=== PATIENT | male | born 1955 | race African-American/Black ===

== ENCOUNTER 2018-05-13 09:25 | Inpatient (IN) | payer MEDICAID ==
[~2018-05-13] VITALS: Ht 170.2 cm; Wt 80.7 kg
[~2018-05-13 09:25] MED LIST: ALBU05 IH; BUDE6HFA IH; DILT90TA2 PO; FLOV44 INH; HY1 PO; HYDR25TA PO; LOSA50TA3 PO; NICO-682 TD
[2018-05-13] MEDS ORDERED: ALBUTEROL (0.083%) 2.5MG/3ML NEB HHN STA (09:50)
[2018-05-13] MEDS ORDERED: IPRATROPIUM BROMIDE (0.02%) 0.5MG/2.5ML NEB HHN STA (09:50)
[2018-05-13] MEDS ORDERED: AZITHROMYCIN 500 MG TABLET PO STA (09:50)
[2018-05-13] MEDS ORDERED: PREDNISONE 20MG TABLET PO STA (09:50)
[2018-05-13] MEDS ORDERED: METHYLPREDNISOLONE SOD SUCC 125 MG/2 ML VIAL IV ONE (10:00)
[2018-05-13 10:19] LABS: BASOPHILS % 0.9 % (0.0-2.0); EOSINOPHILS % 9.3 % (0.0-5.0); HEMATOCRIT. 42.5 % (42.0-52.0); HEMOGLOBIN. 13.8 g/dL (14.0-18.0); LYMPHOCYTES % 15.5 % (20.0-50.0); MEAN CORPUSCULAR HEMOGLOBIN 28.5 pg (28.0-32.0); MEAN CORPUSCULAR VOLUME 87.7 fL (80.0-94.0); MEAN PLATELET VOLUME 8.5 fl (7.4-10.4); MONOCYTES % 6.6 % (2.0-8.0); NEUTROPHILS % 67.7 % (40.0-76.0); PLATELET 262 x1000/uL (130-400); RED BLOOD CELL COUNT 4.85 mill/uL (4.7-6.1); RED CELL DISTRIBUTION WIDTH 15.3 % (11.6-14.6)
[2018-05-13] MEDS ORDERED: GUAIFENESIN-DM 200MG-20MG/10ML UDC PO PRN (13:15)
[2018-05-13] MEDS ORDERED: IPRATROPIUM/ALBUTEROL 0.5-3(2.5)MG/3ML NEB HHN PRN (13:15)
[2018-05-13] MEDS: AMLODIPINE 5MG TABLET PO SCH ×2 (14:31→20:54)
[2018-05-13 16:00] VITALS: BP 159/91
[2018-05-13 16:27] VITALS: BP 147/85
[2018-05-13] MEDS ORDERED: MONTELUKAST SODIUM 10MG TABLET PO SCH (17:00)
[2018-05-13 20:00] VITALS: BP 166/99
[2018-05-13] MEDS: ENOXAPARIN 30MG/0.3ML SYR SUBCUT SCH (20:53)
[2018-05-13] MEDS: METHYLPREDNISOLONE SOD SUCC 40 MG/ML VIAL IV SCH (20:53)
[2018-05-13] MEDS ORDERED: CLONIDINE 0.1MG TABLET PO PRN (21:00)
[2018-05-13 22:13] LABS: CLARITY URINE CLEAR (CLEAR); COLOR URINE YELLOW (YELLOW); KETONES URINE TRACE (NEGATIVE); LEUKOCYTE ESTERASE URINE NEGATIVE (NEGATIVE); NITRITE URINE NEGATIVE (NEGATIVE); OCCULT BLOOD URINE NEGATIVE (NEGATIVE); PROTEIN URINE 3+ (NEGATIVE); SPECIFIC GRAVITY URINE 1.021 (1.005-1.030); UROBILINOGEN URINE 0.2 E.U./dL (0.2-1.0)
[2018-05-13] MEDS: IPRATROPIUM/ALBUTEROL 0.5-3(2.5)MG/3ML NEB HHN SCH (22:13)
[2018-05-13] MEDS: THEOPHYLLINE ANHYDROUS 80 MG/15 ML 120ML PO SCH (22:31)
[2018-05-13 22:44] LABS: *AMPHETAMINES SCREEN URINE NEGATIVE (NEGATIVE); *BENZODIAZEPINES SCREEN URINE NEGATIVE (NEGATIVE); *COCAINE SCREEN URINE PRESUMTIVE POSITIVE (NEGATIVE); METHADONE URINE SCREEN NEGATIVE (NEGATIVE); OPIATES URINE SCREEN NEGATIVE (NEGATIVE)
[2018-05-13 22:45] LABS: *BARBITURATES SCREEN URINE NEGATIVE (NEGATIVE); CANNABINOID URINE SCREEN NEGATIVE (NEGATIVE); PHENCYCLIDINE URINE SCREEN NEGATIVE (NEGATIVE)
[2018-05-13 22:48] VITALS: BP 150/89
[2018-05-13 23:26] LABS: BG BASE EXCESS -0.7 mmol/L (-2.0-2.0); BG CARBOXYHEMOGLOBIN 0.9 % (0.5-1.5); BG DEOXYHEMOGLOBIN 6.3 % (0.0-5.0); BG FRACTION INSPIRED OXYGEN 21; BG HCO3 ACT 24.1 mmol/L (22.0-26.0); BG METHEMOGLOBIN 0.3 % (0.0-1.5); BG OXYGEN SATURATION 93.6 % (92.0-98.5); BG OXYHEMOGLOBIN 92.5 % (94.0-97.0); BG PCO2 40.6 mmHg (35.0-45.0); BG PH 7.392 (7.350-7.450); BG PO2 67.5 mmHg (75.0-100.0); BG SAMPLE SITE RIGHT RADIAL; BG TOTAL HEMOGLOBIN 13.2 g/dL (12.0-18.0); BG VENT MODE ROOM AIR
[2018-05-14] VITALS: BP 149/85
[2018-05-14] MEDS: IPRATROPIUM/ALBUTEROL 0.5-3(2.5)MG/3ML NEB HHN SCH ×4 (01:26→13:04)
[2018-05-14 04:00] VITALS: BP 160/88
[2018-05-14] MEDS: METHYLPREDNISOLONE SOD SUCC 40 MG/ML VIAL IV SCH (04:52)
[2018-05-14] MEDS: THEOPHYLLINE ANHYDROUS 80 MG/15 ML 120ML PO SCH ×2 (05:00→14:45)
[2018-05-14 06:25] VITALS: BP 153/87
[2018-05-14 06:32] LABS: HEMOGLOBIN. 12.2 g/dL (14.0-18.0); MEAN CORPUSCULAR HEMOGLOBIN 27.8 pg (28.0-32.0); MEAN CORPUSCULAR VOLUME 86.7 fL (80.0-94.0); MEAN PLATELET VOLUME 8.6 fl (7.4-10.4); PLATELET 242 x1000/uL (130-400); RED BLOOD CELL COUNT 4.39 mill/uL (4.7-6.1)
[2018-05-14 08:00] VITALS: BP 143/71
[2018-05-14] MEDS ORDERED: AZITHROMYCIN 500 MG TABLET PO SCH (09:00)
[2018-05-14] MEDS: AMLODIPINE 5MG TABLET PO SCH (09:02)
[2018-05-14] MEDS: ENOXAPARIN 30MG/0.3ML SYR SUBCUT SCH (09:02)
[2018-05-14] MEDS ORDERED: PREDNISONE 20MG TABLET PO SCH (11:45)
[2018-05-14 12:00] VITALS: BP 148/70
[2018-05-14 15:11] VITALS: BP 148/70
[2018-05-14 20:19] LABS: PLATELET ESTIMATE NORMAL
[2018-05-18] MEDS ORDERED: PREDNISONE 10MG TABLET PO SCH (09:00)
[2018-05-22] MEDS ORDERED: PREDNISONE 20MG TABLET PO SCH (09:00)
[2018-05-26] MEDS ORDERED: PREDNISONE 10MG TABLET PO SCH (09:00)
== END 2018-05-14 16:12 | disposition home or self-care (01) | DRG 140 ==
LOC: ER 12:35 → EDBEDREQTM 12:43 → EDBEDREQ 12:43 → ENRESERV 14:40 → 7WST 16:05
PROVIDERS: ADMIT Internal Medicine; ATTEND Internal Medicine
DX: J44.1 Chronic obstructive pulmonary disease with (acute) exacerbation (principal); J96.00 Acute respiratory failure, unspecified whether with hypoxia or hypercapnia; N18.3 Chronic kidney disease, stage 3 (moderate); D64.9 Anemia, unspecified; D72.829 Elevated white blood cell count, unspecified; F14.90 Cocaine use, unspecified, uncomplicated; F17.200 Nicotine dependence, unspecified, uncomplicated; F41.9 Anxiety disorder, unspecified; F32.9 Major depressive disorder, single episode, unspecified; F43.10 Post-traumatic stress disorder, unspecified; I12.9 Hypertensive chronic kidney disease with stage 1 through stage 4 chronic kidney disease, or unspecified chronic kidney disease; N40.0 Benign prostatic hyperplasia without lower urinary tract symptoms; T38.0X5A Adverse effect of glucocorticoids and synthetic analogues, initial encounter; Z79.51 Long term (current) use of inhaled steroids; Y92.89 Other specified places as the place of occurrence of the external cause; Z79.899 Other long term (current) drug therapy
CPT/HCPCS: 36415; 36600; 71045; 80048; 80305; 82375; 82805; 87804; 93005; 93970; 94640; 94644; 96374; 99285; J1650; J2920; J2930; J7512; J7611; J7620

== ENCOUNTER 2019-03-14 01:45 | Inpatient (IN) | payer MEDICAID ==
[~2019-03-14] VITALS: Ht 170.2 cm; Wt 92.2 kg
[2019-03-14] VITALS (11 sets, daily range): BP systolic 140–164; BP diastolic 79–102
[~2019-03-14 01:45] MED LIST changes: -DILT90TA2 PO
[2019-03-14] MEDS ORDERED: IPRATROPIUM BROMIDE (0.02%) 0.5MG/2.5ML NEB HHN STA (01:53)
[2019-03-14] MEDS ORDERED: METHYLPREDNISOLONE SOD SUCC 125 MG/2 ML VIAL IV STA (01:53)
[2019-03-14] MEDS ORDERED: ONDANSETRON HCL 4MG/2ML INJ IV STA (01:53)
[2019-03-14] MEDS ORDERED: MAGNESIUM 2 G PREMIX 50 ML IV ONE (02:00)
[2019-03-14] MEDS: ALBUTEROL (0.083%) 2.5MG/3ML NEB HHN SCH ×3 (02:00→03:00)
[2019-03-14 02:15] LABS: BASOPHILS % 1.4 % (0.0-2.0); EOSINOPHILS % 9.1 % (0.0-5.0); HEMATOCRIT. 43.6 % (42.0-52.0); HEMOGLOBIN. 14.4 g/dL (14.0-18.0); LYMPHOCYTES % 16.5 % (20.0-50.0); MEAN CORPUSCULAR HEMOGLOBIN 28.5 pg (28.0-32.0); MEAN CORPUSCULAR VOLUME 86.6 fL (80.0-94.0); MONOCYTES % 5.9 % (2.0-8.0); NEUTROPHILS % 67.1 % (40.0-76.0); PLATELET 209 x1000/uL (130-400); RED BLOOD CELL COUNT 5.04 mill/uL (4.7-6.1); RED CELL DISTRIBUTION WIDTH 15.1 % (11.6-14.6)
[2019-03-14 02:19] LABS: CHLORIDE 108 mEq/L (98-107)
[2019-03-14 03:44] LABS: BG BASE EXCESS -0.4 mmol/L (-2.0-2.0); BG BILEVEL POS AIRWAY PRESSURE 18/5; BG CARBOXYHEMOGLOBIN 0.9 % (0.5-1.5); BG DEOXYHEMOGLOBIN 1.5 % (0.0-5.0); BG FRACTION INSPIRED OXYGEN 40; BG HCO3 ACT 27.5 mmol/L (22.0-26.0); BG METHEMOGLOBIN 0.3 % (0.0-1.5); BG OXYGEN SATURATION 98.5 % (92.0-98.5); BG OXYHEMOGLOBIN 97.3 % (94.0-97.0); BG PCO2 59.7 mmHg (35.0-45.0); BG PH 7.282 (7.350-7.450); BG PO2 147.5 mmHg (75.0-100.0); BG SAMPLE SITE RIGHT BRACHIAL; BG TOTAL HEMOGLOBIN 14.2 g/dL (12.0-18.0); BG VENT MODE MASK - BIPAP; BG VENT RATE 16 set
[2019-03-14] MEDS ORDERED: IPRATROPIUM/ALBUTEROL 0.5-3(2.5)MG/3ML NEB HHN PRN (09:00)
[2019-03-14] MEDS ORDERED: ACETAMINOPHEN 325MG TABLET PO PRN (09:00)
[2019-03-14] MEDS ORDERED: ONDANSETRON HCL 4MG/2ML INJ IV PRN (09:00)
[2019-03-14] MEDS ORDERED: GUAIFENESIN-DM 200MG-20MG/10ML UDC PO PRN (09:00)
[2019-03-14] MEDS: METHYLPREDNISOLONE SOD SUCC 40 MG/ML VIAL IV SCH ×2 (10:49→17:34)
[2019-03-14] MEDS: ENOXAPARIN 40MG/0.4ML SYR SUBCUT SCH (10:52)
[2019-03-14] MEDS: IPRATROPIUM/ALBUTEROL 0.5-3(2.5)MG/3ML NEB HHN SCH ×4 (11:42→23:52)
[2019-03-14 12:31] LABS: *AMPHETAMINES SCREEN URINE NEGATIVE (NEGATIVE); *BARBITURATES SCREEN URINE NEGATIVE (NEGATIVE); *BENZODIAZEPINES SCREEN URINE NEGATIVE (NEGATIVE); *COCAINE SCREEN URINE PRESUMTIVE POSITIVE (NEGATIVE)
[2019-03-14 12:32] LABS: CANNABINOID URINE SCREEN NEGATIVE (NEGATIVE); METHADONE URINE SCREEN NEGATIVE (NEGATIVE); OPIATES URINE SCREEN NEGATIVE (NEGATIVE); PHENCYCLIDINE URINE SCREEN NEGATIVE (NEGATIVE)
[2019-03-14] MEDS ORDERED: INFLUENZA VIRUS VACCINE(AFLURIA) 0.5ML SYR IM ONE (14:00)
[2019-03-14] MEDS ORDERED: NICOTINE 14MG PATCH TD SCH (16:00)
[2019-03-14] MEDS: BUDESONIDE 0.5MG/2ML NEB HHN SCH ×2 (16:20→20:59)
[2019-03-14] MEDS ORDERED: NICOTINE 7MG PATCH TD NR (16:45)
[2019-03-14] MEDS: AMLODIPINE 5MG TABLET PO SCH (21:37)
[2019-03-14] MEDS: GUAIFENESIN 600MG ER TABLET PO SCH (21:38)
[2019-03-15] VITALS (12 sets, daily range): BP systolic 143–172; BP diastolic 84–138
[2019-03-15] MEDS: METHYLPREDNISOLONE SOD SUCC 40 MG/ML VIAL IV SCH ×3 (00:36→16:07)
[2019-03-15] MEDS: IPRATROPIUM/ALBUTEROL 0.5-3(2.5)MG/3ML NEB HHN SCH ×5 (03:20→20:58)
[2019-03-15] MEDS: BUDESONIDE 0.5MG/2ML NEB HHN SCH ×2 (08:27→20:58)
[2019-03-15] MEDS: NICOTINE 21MG PATCH TD SCH (09:02)
[2019-03-15] MEDS: ENOXAPARIN 40MG/0.4ML SYR SUBCUT SCH (09:03)
[2019-03-15] MEDS: GUAIFENESIN 600MG ER TABLET PO SCH ×2 (09:04→22:05)
[2019-03-15] MEDS: AMLODIPINE 5MG TABLET PO SCH ×2 (09:05→22:05)
[2019-03-15] MEDS ORDERED: TERBUTALINE SULFATE 1MG/ML VIAL SUBCUT SCH (14:15)
[2019-03-15] MEDS: CLONIDINE 0.1MG TABLET PO PRN (16:05)
[2019-03-15] MEDS: HYDROCORTISONE 1% OINT 28.35GM TOP SCH (22:00)
[2019-03-16] VITALS (12 sets, daily range): BP systolic 150–166; BP diastolic 78–120
[2019-03-16] MEDS: METHYLPREDNISOLONE SOD SUCC 40 MG/ML VIAL IV SCH ×2 (00:55→08:33)
[2019-03-16] MEDS: IPRATROPIUM/ALBUTEROL 0.5-3(2.5)MG/3ML NEB HHN SCH ×5 (04:07→21:20)
[2019-03-16] MEDS: HYDROCORTISONE 1% OINT 28.35GM TOP SCH ×3 (07:08→20:59)
[2019-03-16] MEDS: CLONIDINE 0.1MG TABLET PO PRN (07:08)
[2019-03-16] MEDS: BUDESONIDE 0.5MG/2ML NEB HHN SCH ×2 (08:18→21:21)
[2019-03-16] MEDS: ENOXAPARIN 40MG/0.4ML SYR SUBCUT SCH (08:34)
[2019-03-16] MEDS: GUAIFENESIN 600MG ER TABLET PO SCH ×2 (08:35→20:57)
[2019-03-16] MEDS: AMLODIPINE 5MG TABLET PO SCH ×2 (08:35→20:58)
[2019-03-16] MEDS: NICOTINE 21MG PATCH TD SCH (08:36)
[2019-03-16 11:31] LABS: BG BASE EXCESS -0.1 mmol/L (-2.0-2.0); BG CARBOXYHEMOGLOBIN 0.9 % (0.5-1.5); BG DEOXYHEMOGLOBIN 6.6 % (0.0-5.0); BG FRACTION INSPIRED OXYGEN 21; BG HCO3 ACT 24.6 mmol/L (22.0-26.0); BG METHEMOGLOBIN 0.2 % (0.0-1.5); BG OXYGEN SATURATION 93.3 % (92.0-98.5); BG OXYHEMOGLOBIN 92.3 % (94.0-97.0); BG PCO2 40.4 mmHg (35.0-45.0); BG PH 7.403 (7.350-7.450); BG PO2 66.4 mmHg (75.0-100.0); BG SAMPLE SITE RIGHT RADIAL; BG TOTAL HEMOGLOBIN 14.7 g/dL (12.0-18.0); BG VENT MODE ROOM AIR
[2019-03-16] MEDS ORDERED: TERBUTALINE SULFATE 1MG/ML VIAL SUBCUT NR (12:45)
[2019-03-16] MEDS: HYDRALAZINE HCL 50MG TABLET PO SCH ×2 (15:48→20:58)
[2019-03-16] MEDS: THEOPHYLLINE ANHYDROUS 80 MG/15 ML 120ML PO SCH ×2 (18:09→23:21)
[2019-03-16] MEDS: METHYLPREDNISOLONE SOD SUCC 125 MG/2 ML VIAL IV SCH ×2 (18:13→23:21)
[2019-03-17] VITALS (11 sets, daily range): BP systolic 145–200; BP diastolic 92–121
[2019-03-17] MEDS: CLONIDINE 0.1MG TABLET PO PRN ×2 (00:06→15:15)
[2019-03-17] MEDS: IPRATROPIUM/ALBUTEROL 0.5-3(2.5)MG/3ML NEB HHN SCH ×5 (05:10→20:57)
[2019-03-17] MEDS: METHYLPREDNISOLONE SOD SUCC 125 MG/2 ML VIAL IV SCH ×3 (06:23→17:37)
[2019-03-17] MEDS: HYDRALAZINE HCL 50MG TABLET PO SCH ×2 (06:23→15:15)
[2019-03-17] MEDS: THEOPHYLLINE ANHYDROUS 80 MG/15 ML 120ML PO SCH ×3 (06:24→17:37)
[2019-03-17] MEDS: HYDROCORTISONE 1% OINT 28.35GM TOP SCH ×2 (06:24→17:00)
[2019-03-17] MEDS: BUDESONIDE 0.5MG/2ML NEB HHN SCH (07:41)
[2019-03-17] MEDS: GUAIFENESIN 600MG ER TABLET PO SCH (09:03)
[2019-03-17] MEDS: AMLODIPINE 5MG TABLET PO SCH (09:04)
[2019-03-17] MEDS: ENOXAPARIN 40MG/0.4ML SYR SUBCUT SCH (09:04)
[2019-03-17] MEDS: NICOTINE 21MG PATCH TD SCH (09:11)
== END 2019-03-17 21:05 | disposition left against medical advice (07) | DRG 816 ==
LOC: ER 01:45 → EDBEDREQSVC 04:05 → 5EST 04:29 → EDBEDREQ 04:36 → EDBEDREQTM 04:36 → ENRESERV 08:24
PROVIDERS: ADMIT Internal Medicine; ATTEND Internal Medicine
DX: T40.5X1A Poisoning by cocaine, accidental (unintentional), initial encounter (principal); J96.02 Acute respiratory failure with hypercapnia; E87.8 Other disorders of electrolyte and fluid balance, not elsewhere classified; D72.1 Eosinophilia; J43.9 Emphysema, unspecified; J68.0 Bronchitis and pneumonitis due to chemicals, gases, fumes and vapors; J45.901 Unspecified asthma with (acute) exacerbation; N18.3 Chronic kidney disease, stage 3 (moderate); I12.9 Hypertensive chronic kidney disease with stage 1 through stage 4 chronic kidney disease, or unspecified chronic kidney disease; B19.20 Unspecified viral hepatitis C without hepatic coma; F14.90 Cocaine use, unspecified, uncomplicated; F17.210 Nicotine dependence, cigarettes, uncomplicated; F31.9 Bipolar disorder, unspecified; E66.9 Obesity, unspecified; Z68.31 Body mass index [BMI] 31.0-31.9, adult; Z79.899 Other long term (current) drug therapy; Y92.89 Other specified places as the place of occurrence of the external cause
CPT/HCPCS: 36415; 36600; 71045; 71250; 80048; 80305; 82375; 82805; 83605; 83880; 84484; 93005; 94618; 94640; 94660; 99291; J1650; J2405; J2920; J2930; J3105; J3475; J7620; J7626